=== PATIENT | male | born 1935 | race Caucasian/White ===

== ENCOUNTER → 2023-11-24 15:26 | Outpatient (REF) | payer MEDICARE, BC, SELFPAY | LOC: PAVMRI 15:26 | PROVIDERS: ATTENDING PHYSICIAN Specialist; FAMILY PHYSICIAN Internal Medicine Geriatric Medicine | DX: M54.16 Radiculopathy, lumbar region (principal) | CPT/HCPCS: 72148 ==

== ENCOUNTER 2024-03-11 05:32 | Emergency (ER) | payer MEDICARE, BC, SELFPAY ==
[2024-03-11] VITALS (8 sets, daily range): BP systolic 118–164; BP diastolic 63–127
[2024-03-11 06:31] LABS: ALT (SGPT) 22 U/L (0-50); AST (SGOT) 18 U/L (17-59); Albumin 3.9 g/dl (3.5-5.0); Alkaline Phosphatase 55 U/L (38-126); Blood Urea Nitrogen 20 mg/dl (9-20); Carbon Dioxide 31 mmol/L (22-30); Chloride 106 mmol/L (98-107); Glucose 126 mg/dl (70-99); Potassium 4.4 mmol/L (3.5-5.1); Sodium 142 mmol/L (135-145); Total Bilirubin 0.9 mg/dl (0.2-1.3); Total Protein 6.5 g/dl (6.3-8.2); eGFR > 60.00
[2024-03-11 06:41] LABS: Hematocrit 40.2 % (39.0-52.0); Hemoglobin 13.3 g/dL (13.0-18.0); Mean Corp Hgb Conc. 33.1 g/dL (33.0-37.0); Mean Corpuscular Hgb 33.8 pg (27.0-31.0); Platelet Count 200 10^3/uL (130-400); Red Blood Cell Count 3.94 10^6/uL (4.70-6.10); Red Cell Dist. Width 13.8 % (11.5-14.5); White Blood Cell Count 20.5 10^3/uL (4.8-10.8)
[2024-03-11 06:42] LABS: NT-proBNP 1540 pg/ml; Troponin I < 0.012 ng/ml
--- NOTE | 2024-03-11 07:17 | ED.GENMED ---
History of Present Illness
General
Chief Complaint: Chest Pain
Source: patient and spouse
Exam Limitations: none
Time Seen by Provider: 03/11/24 07:16
Nursing documentation reviewed up to this point in time: agreed with
History of Present Illness
History of Present Illness:
88-year-old male presents emergency department due to chest pain in the center of his chest since last night. He was able to fall asleep but it woke him up. It hurts when he takes a deep breath.
Past History
Past History
ED Past Medical History: Arrthythmia (Atrial fibrillation), Other (DVT on Eliquis) and Other (Had 'bronchitis in past' and has taken and has taken cipro for it.); Negative CAD or HTN
Social History
Alcohol: None
Drug: None
Personal:
Living: with family
Review of Systems
Review of Systems
Allergies reviewed?: Yes
All Other Systems: Not applicable
Constitutional: Reports no symptoms
EENT: Reports no symptoms
Respiratory: Reports trouble breathing
Cardiac: Reports chest pain
ABD/GI: Reports no symptoms
: Reports no symptoms
Musculoskeletal: Reports no symptoms
Skin: Reports no symptoms
Neurological: Reports no symptoms
Endocrine: Reports no symptoms
Hematologic/Lymphatic: Reports no symptoms
Psychiatric: Reports no symptoms
Phy Exam
Physical Exam
Physical Exam:
Physical Exam
General: no apparent distress, not acutely ill
Neck: supple. no meningeal signs. normal posterior pharynx
Heart: s1/s2 regular rate and irregular rhythm, no murmur. equal radial
pulses.
HEENT: Pupils equal round reactive to light, EOMI
Lungs: no acute respiratory distress. clear bilaterally
Abdomen: normal bowel sounds. not tender. no CVAT
Neuro: alert and oriented. no focal neurological deficits cranial nerves II through XII intact
Skin: no rash
Psychiatric: well kept. interactive and cooperative
Extremities: no edema. no calf tenderness. negative homans. good distal pulses
Scores
Heart Score for Chest Pain Patients
STEMI patient?: No
History: Slightly or Non-Suspicious
ECG: Normal
Age: >/= 65 years
Risk Factors: No Risk Factors
Troponin: </= Normal Limit
Heart Score for Chest Pain Patients: 2
Heart Score Risk: 2.5% MACE over next 6 weeks
Course
Orders/Labs/Results
Orders:
Orders
03/11/24 05:38
Electrocardiogram (*1) Urgent
Reason for Study: Other
Other Reason for Exam: Respiratory Distress
Cardiac Monitoring- Treatment ONCE
EKG- Treatment ONCE
IV Insert/Care/Rem.- Treatment PRN
CR Chest - 2 Views Urgent
Comment:
Reason For Exam: respiratory distress
O2 Therapy [RESP] Urgent
Titrate/Wean O2 to maintain O2 sat greater than (%): 93
Special Instructions: TO MAINTAIN CONTINUOUS O2 SATS >/= 93%
Pulse Ox/cont/shift [RESP] Urgent
Quantity: 1
Special Instructions: continuous pulse ox
03/11/24 06:12
Complete Blood Count/With Diff Urgent
Comprehensive Metabolic Panel Urgent
Lipase Urgent
Comment: ADD ON
NT-proBNP Urgent
Troponin I Urgent
03/11/24 07:27
CT Chest Pe Study Urgent
Comment:
Reason For Exam: pain with inspiration
03/11/24 07:33
D-Dimer Urgent
03/11/24 07:53
Add On- LAB Urgent
Tests Added?: lipase
03/11/24 09:44
Troponin I Urgent
03/11/24 10:35
Prednisone [Deltasone] 40 mg PO NOW STA
Abnormal Lab Results
03/11/24
06:12
WBC 20.5 H 10^3/uL
(4.8-10.8)
RBC 3.94 L 10^6/uL
(4.70-6.10)
MCV 102.0 H fL
(80.0-94.0)
MCH 33.8 H pg
(27.0-31.0)
Abs Immat Gran (auto) 0.1 H 10^3/uL
(0-0.05)
Absolute Neuts (auto) 9.3 H 10^3/uL
(1.4-6.5)
Absolute Lymphs (auto) 9.9 H 10^3/uL
(1.2-3.4)
Absolute Monos (auto) 1.2 H 10^3/uL
(0.1-0.6)
Carbon Dioxide 31 H mmol/L
(22-30)
Glucose 126 H mg/dl
(70-99)
03/11/24 06:12
03/11/24 06:12
Vital Signs
Initial and Last Documented VS:
Initial Vital Signs
Temp Pulse Resp BP Pulse Ox
98.1 F 87 20 141/77 96
03/11/24 05:57 03/11/24 05:57 03/11/24 05:57 03/11/24 05:57 03/11/24 05:57
Last Documented Vital Signs
Temp Pulse Resp BP Pulse Ox
98.1 F 79 21 118/63 96
03/11/24 06:03 03/11/24 10:30 03/11/24 10:30 03/11/24 10:00 03/11/24 10:30
MDM/Problems Addressed
Differential Diagnosis Includes:
Pulmonary embolism, ACS, pneumonia
MDM/Problems Addressed:
88-year-old male with likely exacerbation of interstitial lung disease. Patient stable for discharge. Discussed with Dr. Pham, swager operator who suspects patient likely has exacerbation of his ILD. Recommends treatment with taper of
prednisone and follow-up with his own swager operator. Patient will follow-up with cardiology as well. Leukocytosis likely reactive. Patient has had similar in the past. No focal infection found.
Chronic conditions affecting care: Other (Interstitial lung disease)
Acute Exacerbation and/or Progression of Chronic Illness: Other (Interstitial lung disease)
*Radiology
Radiology exam reviewed: radiology read reviewed (Chest x-ray no acute findings, CT chest shows groundglass opacities, no consolidation)
*Pulse Oximetry
Patient hypoxic: no
*EKG
Interpreted by ED Provider?: Yes
EKG Intrepretation Date: 03/11/24
EKG Intrepretation Time: 05:51
Interpretation: abnormal
Comparison EKG: no changes
Heart Rate: 90
Rate: normal
Rhythm: a-fib
[place]: normal axis
Interval: normal interval
QRS Pattern: normal QRS
Ischemia: no ischemia
*Ceramic Tile Installation Helper Interpretation
Rate: normal
Interpretation: abnormal
Heart Rate: 79
Rhythm: a-fib
*Critical Care Note
Total Time (30-74mins, 75-104mins- exclusive of procedures): Not Applicable
Patient Management
Social determinants of health affecting care: Living situation and Strong social support
Discussion with other providers: Theater Technician (Pulmonology, Dr. Huber)
Escalation/DeEscalation of care consider admission/obs:
Admit not indicated
ED Attending Note
-
Portions of this chart may have been created with voice recognition software.� Occasional wrong word or��sound alike� substitutions may have occurred due to the inherent limitations of voice recognition software.
Discharge Plan
Departure
Patient Disposition: Home (Routine Discharge)
Date of Disposition: 03/11/24
Time of Disposition: 10:47
Patient with high blood pressure during this ER visit?: No
Condition: Good
Discharge Problem:
Interstitial lung disease, Chest pain
Instructions: Interstitial lung disease, Chest Pain CBC Follow Up
Prescriptions:
New
prednisone 10 mg Tablet
See Rx Instructions .ROUTE .COMPLEX Qty: 30 0RF
Rx Instructions:
Take By Mouth:
40 mg daily x3 days, 30 mg daily x3 days,
20 mg daily x3 days, 10 mg daily x3 days.
No Action
valacyclovir [Valtrex] 1 gram Tablet
1,000 mg PO DAILY
tamsulosin 0.4 mg Capsule
0.4 mg PO BID
Eliquis 5 mg Tablet
5 mg PO BID
PreserVision AREDS-2 250-90-40-1 mg Capsule
1 tab PO BID
Vitamin D3
1 tab PO DAILY
mupirocin 2 % ointment
1 applic topical BID Qty: 1 0RF
Patient Comments:
started treatment tuesday11/29/22 and was taking BID. last took at home 12/02/22 in am
docusate sodium 100 mg Capsule
100 mg PO BID Qty: 30 0RF
dexamethasone 4 mg Tablet
4 mg PO Q12 Qty: 5 0RF
Rx Instructions:
Restart night of discharge and take every 12 hours until finished.
Take with food.
Eliquis 2.5 mg Tablet
2.5 mg PO BID Qty: 3 0RF
Rx Instructions:
Cut 5 mg tab in 05/17 (= 2.5 mg) and take twice a day until 12/04 PM.
DO NOT RESUME 5 MG TWICE DAILY UNTIL 12/05 AM
famotidine 20 mg Tablet
20 mg PO HS Qty: 14 0RF
Rx Instructions:
Take nightly while on post-operative pain meds to reduce GI upset.
sennosides [Senna Laxative] 8.6 mg Tablet
17.2 mg PO BID Qty: 30 0RF
acetaminophen [Acetaminophen Extra Strength] 500 mg tablet
1,000 mg PO Q6H Qty: 60 0RF
Rx Instructions:
DO NOT exceed >4000 mg daily.
oxycodone 5 mg tablet
5 - 10 mg PO Q6H PRN (Reason: moderate-severe pain) Qty: 30 0RF
Rx Instructions:
1 tab for moderate pain, 2 if severe.
Dx total joint. Ongoing therapy.
ondansetron HCl 4 mg tablet
4 mg PO Q6H PRN (Reason: nausea and vomiting) Qty: 20 0RF
Rx Instructions:
Take 1/2 hour prior to Oxycodone if experiencing recurrent nausea.
Referrals:
Doug Mckeon MD [Family Provider] - Call in 1-3 days for appt
Wilber Johns MD [Active] - Call in 1-3 days for appt
Activity Restrictions/Additional Instructions:
Follow up with your swager operator.
Interventions
Interventions:
*Risk Screen - Suicide Last Done: 03/11/24 05:57
*General Assessment Last Done: 03/11/24 05:57
*Neglect/Abuse Screening Last Done: 03/11/24 05:57
ED- Fall Risk Assessment Last Done: 03/11/24 05:57
*ED COVID-19 Vaccine History Last Done: 03/11/24 05:57
*Nursing Disposition Last Done: 03/11/24 10:58
ED- Cardiac Assessment Last Done: 03/11/24 09:11
Discharge Date and Time
Discharge Date/Time: 03/11/24 10:59
Print Language: YORUBA
[2024-03-11 08:21] LABS: Lipase 73 U/L (23-300)
[2024-03-11 09:32] LABS: % Basophils 0.2 % (0-2); % Eosinophils 0.3 % (0-6); % Immature Granulocytes 0.4 % (0-0.5); % Lymphocytes 48.2 % (20.5-51.1); % Monocytes 5.6 % (1.7-9.3); % Neutrophils 45.3 % (42.2-75.2); Absolute Eosinophils 0.1 10^3/uL (0-0.7); Absolute Immature Granulocytes 0.1 10^3/uL (0-0.05); Absolute Lymphocytes 9.9 10^3/uL (1.2-3.4); Absolute Monocytes 1.2 10^3/uL (0.1-0.6); Absolute Neutrophils 9.3 10^3/uL (1.4-6.5); Nucleated Red Blood Cells % 0 % (-)
[2024-03-11 10:15] LABS: Troponin I < 0.012 ng/ml
[2024-03-11] MEDS: DELTASONE 40 MG PO (10:44)
== END 2024-03-11 10:59 | disposition home or self-care (01) ==
LOC: EMR 05:32
PROVIDERS: Emergency Medicine; EMERGENCY PHYSICIAN Emergency Medicine; FAMILY PHYSICIAN Internal Medicine Geriatric Medicine
DX: J84.9 Interstitial pulmonary disease, unspecified (principal); R07.89 Other chest pain; I48.91 Unspecified atrial fibrillation; D72.829 Elevated white blood cell count, unspecified; Z86.718 Personal history of other venous thrombosis and embolism
CPT/HCPCS: 99284; 71046; 71275; 80053; 83690; 83880; 84484; 85025; 85379; 93005; Q9967

== ENCOUNTER 2025-05-09 06:42 | Emergency (ER) | payer MEDICARE, BC, SELFPAY ==
[2025-05-09 06:44] VITALS: BP 156/97
[2025-05-09 07:47] VITALS: BMI 21.4
--- NOTE | 2025-05-09 08:22 | ED.GENMED ---
History of Present Illness
General
Chief Complaint: Musculo-Skeletal Complaint
Source: patient and spouse
Exam Limitations: none
Time Seen by Provider: 05/09/25 08:08
Nursing documentation reviewed up to this point in time: agreed with
History of Present Illness
History of Present Illness:
89-year-old male left leg pain starts at his back worse with movement recurrent for at least a year has had 2 spinal injections for spinal stenosis scheduled to have another 1 on May 20, has been on tramadol, pregabalin with minimal relief, no
fevers, pain worsened at 2 AM, no nausea no vomiting no falls
Past History
Past History
ED Past Medical History: Arrthythmia (Atrial fibrillation), Other (DVT on Eliquis) and Other (Had 'bronchitis in past' and has taken and has taken cipro for it.); Negative CAD or HTN
Social History
Alcohol: None
Drug: None
Personal:
Living: with family
Employment: Retired
Review of Systems
Review of Systems
All Other Systems: Not applicable
Constitutional: Denies fever
Respiratory: Reports no symptoms
Cardiac: Reports no symptoms
ABD/GI: Reports no symptoms
: Denies incontinence, urgency or bleeding
Musculoskeletal: Reports back pain
Neurological: Reports numbness
Phy Exam
Physical Exam
Physical Exam:
Physical Exam
General: no apparent distress, not acutely ill
Neck: No jaundice
Heart: Regular
Lungs: no acute respiratory distress. clear bilaterally
Abdomen: Nontender
Neuro: Painful straight leg raise on the left around 30 degrees no pain with range of motion of the right lower extremity
Skin: no rash
Psychiatric: well kept. interactive and cooperative
Extremities: Strong pulses bilaterally lower EXTR
Course
Orders/Labs/Results
Orders:
Orders
05/09/25 08:22
Oxycodone/Acetaminophen [Percocet 5/325] 1 tablet PO NOW STA
Vital Signs
Initial and Last Documented VS:
Initial Vital Signs
Temp Pulse Resp BP Pulse Ox
97.5 F 105 16 156/97 96
05/09/25 06:44 05/09/25 06:44 05/09/25 06:44 05/09/25 06:44 05/09/25 06:44
Last Documented Vital Signs
Temp Pulse Resp BP Pulse Ox
97.5 F 105 16 156/97 96
05/09/25 06:44 05/09/25 06:44 05/09/25 06:44 05/09/25 06:44 05/09/25 08:25
MDM/Problems Addressed
Differential Diagnosis Includes:
Spinal stenosis herniated disc, osteoarthritis, no fever
MDM/Problems Addressed:
Acute on chronic low back
Chronic conditions affecting care:
Spinal stenosis
Acute Exacerbation and/or Progression of Chronic Illness:
Spinal stenosis
*Pulse Oximetry
SaO2: 96
Oxygen Mode of Delivery: Room air
Patient hypoxic: no
*Critical Care Note
Total Time (30-74mins, 75-104mins- exclusive of procedures): Not Applicable
Update Note
Update Note:
Update appears to be acute on chronic issue, will try to get him comfortable he already has follow-up scheduled for a injection
9:30 PM update patient up ambulating
ED Attending Note
-
Portions of this chart may have been created with voice recognition software.� Occasional wrong word or��sound alike� substitutions may have occurred due to the inherent limitations of voice recognition software.
Discharge Plan
Departure
Patient Disposition: Home (Routine Discharge)
Date of Disposition: 05/09/25
Time of Disposition: 09:34
Patient with high blood pressure during this ER visit?: Yes
Condition: Good
Covid-19: Not Applicable
Discharge Problem:
Spinal stenosis
Instructions: Low back pain - ED (DC)
Prescriptions:
New
oxycodone 5 mg tablet
5 mg PO Q6H PRN (Reason: Pain) Qty: 20 0RF
No Action
valacyclovir [Valtrex] 1 gram Tablet
1,000 mg PO DAILY
tamsulosin 0.4 mg Capsule
0.4 mg PO BID
Eliquis 5 mg Tablet
5 mg PO BID
PreserVision AREDS-2 250-90-40-1 mg Capsule
1 tab PO BID
Vitamin D3
1 tab PO DAILY
mupirocin 2 % ointment
1 applic topical BID Qty: 1 0RF
Patient Comments:
started treatment tuesday11/29/22 and was taking BID. last took at home 12/02/22 in am
docusate sodium 100 mg Capsule
100 mg PO BID Qty: 30 0RF
dexamethasone 4 mg Tablet
4 mg PO Q12 Qty: 5 0RF
Rx Instructions:
Restart night of discharge and take every 12 hours until finished.
Take with food.
Eliquis 2.5 mg Tablet
2.5 mg PO BID Qty: 3 0RF
Rx Instructions:
Cut 5 mg tab in 05/17 (= 2.5 mg) and take twice a day until 12/04 PM.
DO NOT RESUME 5 MG TWICE DAILY UNTIL 12/05 AM
famotidine 20 mg Tablet
20 mg PO HS Qty: 14 0RF
Rx Instructions:
Take nightly while on post-operative pain meds to reduce GI upset.
sennosides [Senna Laxative] 8.6 mg Tablet
17.2 mg PO BID Qty: 30 0RF
acetaminophen [Acetaminophen Extra Strength] 500 mg tablet
1,000 mg PO Q6H Qty: 60 0RF
Rx Instructions:
DO NOT exceed >4000 mg daily.
oxycodone 5 mg tablet
5 - 10 mg PO Q6H PRN (Reason: moderate-severe pain) Qty: 30 0RF
Rx Instructions:
1 tab for moderate pain, 2 if severe.
Dx total joint. Ongoing therapy.
ondansetron HCl 4 mg tablet
4 mg PO Q6H PRN (Reason: nausea and vomiting) Qty: 20 0RF
Rx Instructions:
Take 1/2 hour prior to Oxycodone if experiencing recurrent nausea.
prednisone 10 mg Tablet
See Rx Instructions .ROUTE .COMPLEX Qty: 30 0RF
Rx Instructions:
Take By Mouth:
40 mg daily x3 days, 30 mg daily x3 days,
20 mg daily x3 days, 10 mg daily x3 days.
Referrals:
UNKNOWN - PT NOT,INTERVIEWE [Family Provider]
Interventions
Interventions:
*General Assessment Last Done: 05/09/25 07:50
*Neglect/Abuse Screening Last Done: 05/09/25 07:50
*ED COVID-19 Vaccine History Last Done: 05/09/25 07:50
*ED Influenza Vaccine History Last Done: 05/09/25 07:50
[facility] Fall Risk Assessment Tool Last Done: 05/09/25 07:50
*Risk Screen - Suicide (C-SSRS) Last Done: 05/09/25 06:44
ED-Musculoskeletal Assessment Last Done: 05/09/25 07:51
Discharge Date and Time
Print Language: UKRAINIAN
[2025-05-09] MEDS: PERCOCET 5/325 1 TABLET PO (08:31)
[2025-05-09 10:19] VITALS: BP 146/78
== END 2025-05-09 10:20 | disposition home or self-care (01) ==
LOC: EMR 06:42
PROVIDERS: EMERGENCY PHYSICIAN Emergency Medicine
DX: M48.00 Spinal stenosis, site unspecified (principal); I48.91 Unspecified atrial fibrillation; Z86.718 Personal history of other venous thrombosis and embolism; Z79.01 Long term (current) use of anticoagulants
CPT/HCPCS: 99283